=== PATIENT | female | born 2000 | race Caucasian/White ===

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

== ENCOUNTER 2020-01-09 18:23 | Emergency (ER) | payer OTHER ==
[~2020-01-09] VITALS: Ht 157.5 cm; Wt 59.0 kg
[~2020-01-09 18:23] MED LIST: TYLENOL EXTRA500 MG PO
[2020-01-09 19:28] LABS: ABSOLUTE NEUTROPHILS 8.4 thou/uL (1.4-8.2); BASOPHILS 0.3 % (0.0-2.0); EOSINOPHILS 0.1 % (0.0-3.0); HEMATOCRIT 39.5 % (37.0-47.0); HEMOGLOBIN 13.6 gm/dL (12.0-15.0); LYMPHOCYTES 8.9 % (24.0-44.0); MCH 30.2 pg (26.0-34.0); MCHC 34.4 g/dL (28.0-37.0); MCV 87.7 fL (80.0-100.0); MONOCYTES 4.9 % (1.0-8.0); PLATELET COUNT 308 thou/uL (150-400); POLYS 85.8 % (36.0-66.0); RBC 4.51 mil/uL (4.20-5.00); RDW 13.7 % (10.5-14.5); WBC 9.8 thou/uL (4.0-11.0)
[2020-01-09 19:38] LABS: URINE BILIRUBIN 2+ (Negative); URINE BLOOD NEGATIVE (Negative); URINE CLARITY SL CLOUDY; URINE COLOR YELLOW; URINE GLUCOSE-RANDOM* NEGATIVE (Negative); URINE KETONES 3+ (Negative); URINE LEUKOCYTES-REFLEX TRACE (Negative); URINE NITRITE-REFLEX NEGATIVE (Negative); URINE PROTEIN (DIPSTICK) 1+ (Negative)
[2020-01-09 20:00] LABS: ICTOTEST (BILI CONFIRMATORY) Positive (Negative); SSA (PROTEIN CONFIRMATORY) TRACE (APPROX. 5) mg/dL (Negative)
[2020-01-09 20:03] LABS: AMORPHOUS URATES Moderate /LPF (None Seen); BACTERIA-REFLEX None Seen /HPF (None Seen); CRYSTALS None Seen /LPF (None Seen); SQUAMOUS 0-3 Few /LPF (0-3); URINE RBC None Seen /HPF (0-2); URINE WBC-REFLEX None Seen /HPF (0-5)
[2020-01-09 20:51] LABS: CALCIUM 9.3 mg/dL (8.5-10.1); CREATININE 0.8 mg/dL (0.6-1.0); POTASSIUM 3.2 mmol/L (3.5-5.1)
[2020-01-09 21:02] LABS: ALBUMIN 4.6 g/dL (3.4-5.0); TOTAL BILIRUBIN 4.6 mg/dL (0.2-1.0); TOTAL PROTEIN 8.5 g/dL (6.4-8.2)
[2020-01-09] MEDS ORDERED: ONDANSETRON ODT8 MG PO (22:00)
[2020-01-09] MEDS ORDERED: TRAMADOL 50 MG50 MG PO (22:25)
[2020-01-09 23:03] VITALS: BP 108/57
[2020-01-11 09:07] LABS: HAV IgM AB (ANTI-HAV IgM) Negative (Negative); HEPATITIS B SURFACE AG Negative (Negative); HEPATITIS C VIRUS AB <0.1 (0.0-0.9)
== END 2020-01-09 23:04 | disposition home or self-care (01) ==
LOC: ER 18:23
PROVIDERS: Emergency Medicine
DX: B17.9 Acute viral hepatitis, unspecified (principal); R11.2 Nausea with vomiting, unspecified

== ENCOUNTER 2020-01-12 12:34 | Emergency (ER) | payer OTHER ==
[~2020-01-12] VITALS: Ht 157.5 cm; Wt 59.0 kg
[~2020-01-12 12:34] MED LIST changes: +ONDANSETRON ODT8 MG PO; +TRAMADOL 50 MG50 MG PO
[2020-01-12 12:59] LABS: URINE BILIRUBIN 3+ (Negative); URINE BLOOD NEGATIVE (Negative); URINE CLARITY SL CLOUDY; URINE COLOR YELLOW; URINE GLUCOSE-RANDOM* NEGATIVE (Negative); URINE KETONES 3+ (Negative); URINE LEUKOCYTES-REFLEX NEGATIVE (Negative); URINE NITRITE-REFLEX NEGATIVE (Negative); URINE PROTEIN (DIPSTICK) 2+ (Negative); URINE SPECIFIC GRAVITY >= 1.030 (1.005-1.035)
[2020-01-12 13:04] LABS: ICTOTEST (BILI CONFIRMATORY) Positive (Negative)
[2020-01-12 13:12] LABS: URINE REDUCING SUBSTANCE NEGATIVE
[2020-01-12 13:17] LABS: CRYSTALS None Seen /LPF (None Seen); FINE GRANULAR CASTS >10 Many /LPF (None Seen)
[2020-01-12 13:18] LABS: URINE RBC 0-2 Rare /HPF (0-2); URINE WBC-REFLEX 6-15 Few /HPF (0-5)
[2020-01-12 13:19] LABS: SQUAMOUS 4-10 Moderate /LPF (0-3)
[2020-01-12 13:20] LABS: CALCIUM 9.3 mg/dL (8.5-10.1); CREATININE 0.8 mg/dL (0.6-1.0); POTASSIUM 3.2 mmol/L (3.5-5.1)
[2020-01-12 13:29] LABS: ALBUMIN 4.4 g/dL (3.4-5.0); TOTAL BILIRUBIN 1.6 mg/dL (0.2-1.0); TOTAL PROTEIN 9.1 g/dL (6.4-8.2)
[2020-01-12 13:45] LABS: ABSOLUTE NEUTROPHILS 3.9 thou/uL (1.4-8.2); BASOPHILS 0.8 % (0.0-2.0); EOSINOPHILS 0.6 % (0.0-3.0); HEMATOCRIT 44.9 % (37.0-47.0); LYMPHOCYTES 22.2 % (24.0-44.0); MCH 30.5 pg (26.0-34.0); MCHC 34.6 g/dL (28.0-37.0); PLATELET COUNT 330 thou/uL (150-400); POLYS 67.4 % (36.0-66.0); RBC 5.11 mil/uL (4.20-5.00); RDW 13.7 % (10.5-14.5); WBC 5.7 thou/uL (4.0-11.0)
[2020-01-12 13:46] LABS: HEMOGLOBIN 15.6 gm/dL (12.0-15.0)
[2020-01-12 14:31] VITALS: BP 120/84
== END 2020-01-12 14:31 | disposition home or self-care (01) ==
LOC: ER 12:34
PROVIDERS: Physician Assistant
DX: R10.84 Generalized abdominal pain (principal); R74.0 Nonspecific elevation of levels of transaminase and lactic acid dehydrogenase [LDH]; Z79.899 Other long term (current) drug therapy

== ENCOUNTER 2021-01-04 15:11 | Observation (INO) | payer OTHER ==
[~2021-01-04] VITALS: Ht 157.5 cm; Wt 63.5 kg
--- NOTE | ~2021-01-04 | O ---
[facility] [place] [address] OPERATIVE REPORT Name: SANTOSH CHARLTON Room #: 443-[facility] Dimitris Rosario#: [id number] Admission: 01/04/21 Attend Phys: Cory Painter, Discharge: 01/05/21 Date of : 00 Report #: [id number] THIS REPORT FOR: cc: FAM - No family physician/PCP FAM - No family physician/PCP Cory Painter MD ~ DATE OF SERVICE: 01/05/2021 PREOPERATIVE DIAGNOSIS: Symptomatic cholelithiasis. POSTOPERATIVE DIAGNOSIS: Symptomatic cholelithiasis. OPERATION: Laparoscopic cholecystectomy. SURGEON: Cory Painter MD ANESTHESIA: General. ESTIMATED BLOOD LOSS: Minimal. SPECIMENS: Gallbladder. DESCRIPTION OF PROCEDURE: After informed consent was obtained, the patient was brought to the operating room and placed supine. SCDs were placed and working, preoperative antibiotics were administered, general anesthesia was induced. The abdomen was prepped and draped in the usual sterile fashion. A 10 mm incision was made below the umbilicus. Fascia was incised and a trocar was placed. Pneumoperitoneum was established. Three right upper quadrant 5 mm ports were placed. Gallbladder was grasped at the fundus and retracted cephalad. Infundibulum was grasped and retracted laterally. I dissected out the cystic duct and the cystic artery. The cystic duct and artery were clipped and ligated leaving 2 clips on the remaining duct and one on the remaining artery. Gallbladder was then taken off the liver bed with electrocautery. It was placed into an Endopouch and removed. Fascia was then closed with a [id number] 0 Vicryl. Skin was closed with 4-0 Monocryl. Incisions were dressed with Steri-Strips. COMPLICATIONS: None. DISPOSITION: The patient was taken to recovery in satisfactory condition. By: [id number] Cory Painter MD /nt
[2021-01-04 15:11] VITALS: BP 133/66
[2021-01-04 15:28] LABS: URINE BILIRUBIN NEGATIVE (Negative); URINE BLOOD NEGATIVE (Negative); URINE CLARITY CLEAR; URINE COLOR YELLOW; URINE GLUCOSE-RANDOM* NEGATIVE (Negative); URINE KETONES TRACE (Negative); URINE LEUKOCYTES-REFLEX NEGATIVE (Negative); URINE NITRITE-REFLEX NEGATIVE (Negative); URINE PROTEIN (DIPSTICK) NEGATIVE (Negative); URINE UROBILINOGEN 0.2 E.U./dl (0.2-1.0)
[2021-01-04 15:36] LABS: BASOPHILS 0.6 % (0.0-2.0); EOSINOPHILS 0.3 % (0.0-3.0); HEMOGLOBIN 13.8 gm/dL (12.0-15.0); LYMPHOCYTES 28.3 % (24.0-44.0); MCH 30.8 pg (26.0-34.0); MCHC 34.5 g/dL (28.0-37.0); MCV 89.5 fL (80.0-100.0); MONOCYTES 8.5 % (1.0-8.0); PLATELET COUNT 303 thou/uL (150-400); POLYS 62.3 % (36.0-66.0); RBC 4.47 mil/uL (4.20-5.00); RDW 13.1 % (10.5-14.5); WBC 4.9 thou/uL (4.0-11.0)
[2021-01-04 15:43] LABS: CALCIUM 9.2 mg/dL (8.5-10.1); CREATININE 0.6 mg/dL (0.6-1.0); POTASSIUM 3.6 mmol/L (3.5-5.1)
[2021-01-04 15:50] LABS: ALBUMIN 4.2 g/dL (3.4-5.0); TOTAL BILIRUBIN 0.7 mg/dL (0.2-1.0); TOTAL PROTEIN 8.2 g/dL (6.4-8.2)
[2021-01-04 19:06] VITALS: BP 133/97
[2021-01-04 19:42] VITALS: BP 130/61
[2021-01-04 20:00] VITALS: BP 134/86
--- NOTE | 2021-01-05 03:23 | NUR ---
PT ARRIVED FROM ER 1999 A&OX4 UP AD CHAVEZ DENIES NAUSEA/ VOMITING ON ASSESSMENT. ADMISSION DONE AND PT ORIENTED TO THE UNIT. PT NPO AT MIDNIGHT FOR SURGERY TOMORROW. CALLED DR REYES AND ORDERS RECIEVED FOR IV FLUIDS AND MEDS SEE EMAR. CLEAR LUNGS SOUNDS. FALL EDUCATION PROVIDED AND CALL LIGHT AT REACH WILL CONT TO MONITOR.
[2021-01-05 06:00] VITALS: BP 128/69
[2021-01-05 07:38] VITALS: BP 120/85
--- NOTE | 2021-01-05 09:38 | NUR ---
Assumed care of pt at 0700. Pt a&ox4. Up ad graciela. IVF infusing. Surgery today scheduled for noon. Denies pain. Call light within reach. Will continue to monitor.
[2021-01-05] MEDS ORDERED: NORCO5 PO (14:07)
[2021-01-05 15:13] VITALS: BP 120/85
[2021-01-05 15:33] VITALS: BP 121/82
== END 2021-01-05 17:12 | disposition home or self-care (01) ==
LOC: ER 15:11 → 4S 17:39 → EROBS 17:39 → 4S 19:49
PROVIDERS: Emergency Medicine; ADMIT Surgery; ATTEND Surgery
DX: K80.21 Calculus of gallbladder without cholecystitis with obstruction (principal); Z20.822 Contact with and (suspected) exposure to COVID-19; R11.2 Nausea with vomiting, unspecified; R19.7 Diarrhea, unspecified
CPT/HCPCS: 10195; 50010; 50101; 50411; 50555; 51489; 52265; 52266; 53307; 53312; 53314; 55245; 56462; 56525; 56526; 58574; 62110; 62900; 70005